=== PATIENT | female | born 1975 | race Caucasian/White ===

== ENCOUNTER 2020-11-12 15:52 | Emergency (ER) | payer SELFPAY ==
[~2020-11-12] VITALS: Ht 165 cm; Wt 81.6 kg
--- NOTE | 2020-11-12 16:21 | ED EENT ---
History of Present Illness General Chief Complaint: Facial Problems Stated Complaint: DENTAL PAIN/FACIAL SWELLING Nursing Triage Note: pt presents to ed via pov from home with complaints of chin wound that she noticed 4-5 days ago. pt reports she was seen at [facility] a couple days ago and prescribed clindamycin but reports no improvement. Source: patient Exam Limitations: no limitations History of Present Illness Date Seen by Provider: Nov 12, 2020 Time Seen by Provider: 16:21 Initial Comments to ER with c/o right mandible pain and swelling x4-5 days. Currently on clindamycin wihtout improvement. Timing/Duration: abrupt Severity: moderate Associated Symptoms: denies symptoms Allergies and Home Medications Allergies Coded Allergies: No Known Drug Allergies (Unverified , 11/12/20) Home Medications Doxycycline Hyclate 100 Mg Tablet, 100 MG PO BID Prescribed by: ARACELIS CEDILLO on 11/12/20 2683 Patient Home Medication List Home Medication List Reviewed: Yes Review of Systems Review of Systems Constitutional: see HPI Eyes: No Symptoms Reported Ears: No Symptoms Reported Nose: no symptoms reported Mouth: see HPI Throat: no symptoms reported Respiratory: no symptoms reported Cardiovascular: no symptoms reported Musculoskeletal: no symptoms reported Skin: no symptoms reported Neurological: No Symptoms Reported Hematologic/Lymphatic: No Symptoms Reported Past Vepexlw-Xhpktj-Nlbbqx Hx Patient Social History Tobacco Use?: No Smoking Status: Never a Smoker Smokeless Tobacco Frequency: Never a User Use of E-Cig and/or Vaping dev: No Use of E-Cig and/or Vaping Jose Ramon: Never a User Substance use?: No Alcohol Use?: Yes Alcohol Frequency: Couple times a week Pt feels they are or have been: No Physical Exam Vital Signs Vital Signs - First Documented 11/12/20 16:14 Temp 36.5 Pulse 96 Resp 18 B/P (MAP) 159/88 (111) Pulse Ox 96 Height, Weight, BMI Height: '" Weight: lbs. oz. kg; 29.00 BMI Method: General Appearance: WD/WN, no apparent distress Eyes: bilateral eye normal inspection, bilateral eye PERRL, bilateral eye EOMI Ears: bilateral ear auricle normal, bilateral ear canal normal, bilateral ear TM normal Mouth/Throat: other (edema with draining punctum to right lower mandible) Neck: non-tender, full range of motion Cardiovascular: regular rate, rhythm, no murmur Respiratory: no respiratory distress, no accessory muscle use Neurologic/Psychiatric: alert, normal mood/affect, oriented x 3 Skin: normal color, warm/dry Procedures/Interventions I&D : Blade Size: 11 Progress/Results/Core Measures Results/Orders Lab Results Laboratory Tests Test 11/12/20 16:26 Range/Units White Blood Count 14.2 H 4.3-11.0 10^3/uL Red Blood Count 4.23 3.80-5.11 10^6/uL Hemoglobin 12.7 11.5-16.0 g/dL Hematocrit 37 35-52 % Mean Corpuscular Volume 87 80-99 fL Mean Corpuscular Hemoglobin 30 25-34 pg Mean Corpuscular Hemoglobin Concent 35 32-36 g/dL Red Cell Distribution Width 12.9 10.0-14.5 % Platelet Count 254 130-400 10^3/uL Mean Platelet Volume 10.3 9.0-12.2 fL Immature Granulocyte % (Auto) 0 % Neutrophils (%) (Auto) 54 42-75 % Lymphocytes (%) (Auto) 39 12-44 % Monocytes (%) (Auto) 4 0-12 % Eosinophils (%) (Auto) 3 0-10 % Basophils (%) (Auto) 1 0-10 % Neutrophils # (Auto) 7.7 1.8-7.8 X 10^3 Lymphocytes # (Auto) 5.5 H 1.0-4.0 X 10^3 Monocytes # (Auto) 0.6 0.0-1.0 X 10^3 Eosinophils # (Auto) 0.4 H 0.0-0.3 10^3/uL Basophils # (Auto) 0.1 0.0-0.1 10^3/uL Immature Granulocyte # (Auto) 0.0 0.0-0.1 10^3/uL Neutrophils % (Manual) 62 % Lymphocytes % (Manual) 31 % Monocytes % (Manual) 4 % Eosinophils % (Manual) 1 % Basophils % (Manual) 2 % Band Neutrophils 0 % Blood Morphology Comment NORMAL Sodium Level 135 135-145 MMOL/L Potassium Level 4.0 3.6-5.0 MMOL/L Chloride Level 108 H 98-107 MMOL/L Carbon Dioxide Level 19 L 21-32 MMOL/L Anion Gap 8 5-14 MMOL/L Blood Urea Nitrogen 4 L 7-18 MG/DL Creatinine 0.68 0.60-1.30 MG/DL Estimat Glomerular Filtration Rate > 60 BUN/Creatinine Ratio 6 Glucose Level 229 H 70-105 MG/DL Calcium Level 8.4 L 8.5-10.1 MG/DL My Orders Orders - ARACELIS CEDILLO APRN Lidocaine 1% Inj 20 Ml (Xylocaine 1% Inj (11/12/20 16:30) Rx-Hydrocodone/Apap 5-325 Mg (Rx-Vicodin (11/12/20 16:30) Ceftriaxone (Rocephin) (11/12/20 16:30) Lidocaine 1% Inj 20 Ml (Xylocaine 1% Inj (11/12/20 16:30) Ed Iv/Invasive Line Start (11/12/20 16:22) Cbc With Automated Diff (11/12/20 16:22) Basic Metabolic Panel (11/12/20 16:22) Piperacillin Sodium/Tazobactam (Zosyn Vi (11/12/20 16:30) Ct Neck (Soft Tissue) W (11/12/20 16:27) Ketorolac Injection (Toradol Injection) (11/12/20 16:30) Manual Differential (11/12/20 16:26) Iohexol Injection (Omnipaque 350 Mg/Ml 1 (11/12/20 17:00) Di Iv Start (Assessment) .IV start (11/12/20 16:59) Received Contrast (Hold Metformin- Contr (11/12/20 17:00) Doxycycline Hyclate Tablet (Vibramycin T (11/12/20 17:30) Wound Culture (11/12/20 18:18) Medications Given in ED Vital Signs/I&O 11/13/20 00:00 Intake Total 100 ml Balance 100 ml Blood Pressure Mean: 111 Diagnostic Imaging Diagonstic Imaging: CT Comments NAME: MICKEY BAIRD [facility] REC#: [id number] PT STATUS: REG ER : 1975 PHYSICIAN: ARACELIS CEDILLO APRN ADMIT DATE: 11/12/20/ER Draft Date of Exam:11/12/20 CT NECK (SOFT TISSUE) W CLINICAL INDICATION: Patient with swelling of the right mandible. EXAM: Axial CT scan of the neck performed with 75 mL of Omnipaque 350 IV contrast. Sagittal and coronal reformatted images were created. Auto Exposure Controls were utilized during the CT exam to meet ALARA standards for radiation dose reduction. COMPARISON: None. FINDINGS: There is a moderate amount of soft tissue swelling seen anterior and lateral to the right mandibular body. There is no cortical disruption seen involving the right mandible. There is poor dentition noted of multiple teeth including possibly the mandibular right posterior molar tooth. Dental hardware limits evaluation due to the streak artifact. There is dental erosion about the maxillary right 2nd premolar tooth and mandibular left 1st molar tooth. There is no evidence of drainable fluid collection. There is note of soft tissue irregularity involving the right of midline anterior aspect of the farmer/soft tissue adjacent to the mandible which is in the region of the soft tissue swelling. There is thickening of the skin adjacent to this area of soft tissue irregularity which may represent cellulitis. Bilateral neck prominent lymph nodes are seen, likely reactive. The nasopharynx, oropharynx, hypopharynx and laryngeal soft tissue structures show no significant abnormality and are symmetric. The salivary glands and thyroid gland are unremarkable. Visualized upper lung brock are clear. Cervical spine shows no significant abnormality. Visualized intracranial structures show no significant abnormality. There is mild mucosal thickening involving the left maxillary sinus. IMPRESSION: 1: There is moderate amount of soft tissue swelling adjacent to the right mandible and right of midline aspect of the chin. There is a localized area of soft tissue irregularity involving the anterior right side of the chin/perimandibular region with adjacent soft tissue skin thickening. This may represent cellulitis with swelling deep to the region. There is no evidence of abscess. An area of trauma/laceration or insect bite may be considered in this region. Clinical correlation would better evaluate. 2: There is poor dentition seen. Dictated on workstation # [id number] Dict: 11/12/20 1702 Trans: 11/12/[address] [facility] [id number] Interpreted by: NELSON CHIU MD Electronically signed by: Departure Impression Primary Impression: Facial cellulitis Disposition: 01 HOME, SELF-CARE Condition: Stable Departure-Patient Inst. Decision time for Depature: 17:11 Referrals: NO,LOCAL PHYSICIAN (PCP/Family) Primary Care Physician Patient Instructions: Abscess Incision and Drainage Add. Discharge Instructions: Continue the clindamycin antibiotics. Warm compresses to the area. Pain medication as directed. Follow-up with your primary care provider this week for recheck. All discharge instructions reviewed with patient and/or family. Voiced understanding. Scripts Doxycycline Hyclate (Doxycycline Hyclate) 100 Mg Tablet 100 MG PO BID, #20 TAB 0 Refills Prov: ARACELIS CEDILLO APRN 11/12/20 ARACELIS CEDILLO APRN Nov 12, 2020 16:21
[2020-11-12] MEDS ORDERED: cefTRIAXone 1,000 MG VIAL IM ONE (16:30)
[2020-11-12] MEDS ORDERED: LIDOCAINE 1% INJ 20 ML 20 ML VIAL INJ ONE ×2 (16:30)
[2020-11-12] MEDS ORDERED: KETOROLAC 30 MG/ML VIAL IVP ONE (16:30)
[2020-11-12] MEDS ORDERED: PIPERACILLIN SODIUM/TAZOBACTAM 4.5 GM in NS (IVPB) 100 ML IV ONE (16:30)
[2020-11-12 16:34] LABS: BASOPHILS # (AUTO) 0.1 10^3/uL (0.0-0.1); BASOPHILS % (AUTO) 1 % (0-10); EOSINOPHILS # (AUTO) 0.4 10^3/uL (0.0-0.3); EOSINOPHILS % (AUTO) 3 % (0-10); HEMATOCRIT 37 % (35-52); HEMOGLOBIN 12.7 g/dL (11.5-16.0); LYMPHOCYTES # (AUTO) 5.5 X 10^3 (1.0-4.0); LYMPHOCYTES % (AUTO) 39 % (12-44); MEAN CORPUSCULAR HEMOGLOBIN 30 pg (25-34); MEAN CORPUSCULAR HGB CONC 35 g/dL (32-36); MEAN CORPUSCULAR VOLUME 87 fL (80-99); MEAN PLATELET VOLUME 10.3 fL (9.0-12.2); MONOCYTES # (AUTO) 0.6 X 10^3 (0.0-1.0); MONOCYTES % (AUTO) 4 % (0-12); NEUTROPHILS # (AUTO) 7.7 X 10^3 (1.8-7.8); NEUTROPHILS % (AUTO) 54 % (42-75); PLATELET COUNT 254 10^3/uL (130-400); WHITE BLOOD COUNT 14.2 10^3/uL (4.3-11.0)
[2020-11-12 16:49] LABS: BUN/CREATININE RATIO 6; CALCIUM 8.4 MG/DL (8.5-10.1); CARBON DIOXIDE 19 MMOL/L (21-32); CHLORIDE 108 MMOL/L (98-107); CREATININE SERUM 0.68 MG/DL (0.60-1.30); GFR ESTIMATED > 60; GLUCOSE 229 MG/DL (70-105); SODIUM 135 MMOL/L (135-145)
[2020-11-12 16:54] LABS: BAND NEUTROPHILS 0 %; LYMPHOCYTES % (MANUAL) 31 %; NEUTROPHILS % (MANUAL) 62 %
[2020-11-12 16:55] LABS: BASOPHILS % (MANUAL) 2 %; EOSINOPHILS % (MANUAL) 1 %; MONOCYTES % (MANUAL) 4 %; RBC MORPH NORMAL
[2020-11-12] MEDS ORDERED: IOHEXOL 350 MG/ML 100 ML (OMNIPAQUE 350) VIAL IV ONE (17:00)
[2020-11-12] MEDS ORDERED: HOLD METFORMIN - RECEIVED CONTRAST 20 ML VIAL IV SCH (17:00)
--- NOTE | 2020-11-12 17:19 | Diagnostic Imaging Report ---
CLINICAL INDICATION: Patient with swelling of the right mandible. EXAM: Axial CT scan of the neck performed with 75 mL of Omnipaque 350 IV contrast. Sagittal and coronal reformatted images were created. Auto Exposure Controls were utilized during the CT exam to meet ALARA standards for radiation dose reduction. COMPARISON: None. FINDINGS: There is a moderate amount of soft tissue swelling seen anterior and lateral to the right mandibular body. There is no cortical disruption seen involving the right mandible. There is poor dentition noted of multiple teeth including possibly the mandibular right posterior molar tooth. Dental hardware limits evaluation due to the streak artifact. There is dental erosion about the maxillary right 2nd premolar tooth and mandibular left 1st molar tooth. There is no evidence of drainable fluid collection. There is note of soft tissue irregularity involving the right of midline anterior aspect of the farmer/soft tissue adjacent to the mandible which is in the region of the soft tissue swelling. There is thickening of the skin adjacent to this area of soft tissue irregularity which may represent cellulitis. Bilateral neck prominent lymph nodes are seen, likely reactive. The nasopharynx, oropharynx, hypopharynx and laryngeal soft tissue structures show no significant abnormality and are symmetric. The salivary glands and thyroid gland are unremarkable. Visualized upper lung brock are clear. Cervical spine shows no significant abnormality. Visualized intracranial structures show no significant abnormality. There is mild mucosal thickening involving the left maxillary sinus. IMPRESSION: 1: There is moderate amount of soft tissue swelling adjacent to the right mandible and right of midline aspect of the chin. There is a localized area of soft tissue irregularity involving the anterior right side of the chin/perimandibular region with adjacent soft tissue skin thickening. This may represent cellulitis with swelling deep to the region. There is no evidence of abscess. An area of trauma/laceration or insect bite may be considered in this region. Clinical correlation would better evaluate. 2: There is poor dentition seen. Dictated by: Dictated on workstation # [id number]
[2020-11-12] MEDS ORDERED: DOXY100T2 PO (17:25)
[2020-11-12] MEDS ORDERED: DOXYCYCLINE 100 MG (VIBRAMYCIN) TABLET PO SCH (17:30)
[2020-11-12 17:42] VITALS: BP 132/74
== END 2020-11-12 17:41 | disposition home or self-care (01) ==
LOC: ER 15:57
DX: L03.211 Cellulitis of face (principal)
CPT/HCPCS: 36415; 70491; 80048; 85007; 85027; 87070; 87077; 87186; 87205